=== PATIENT | female | born 1995 | race Two or more races ===

== ENCOUNTER → 2017-04-10 | Outpatient (CLI) | payer MEDICAID | LOC: FIMAGING 07:32 | PROVIDERS: ATTEND Physician Assistant | DX: O36.62X0 Maternal care for excessive fetal growth, second trimester, not applicable or unspecified (principal); O35.8XX0 Maternal care for other (suspected) fetal abnormality and damage, not applicable or unspecified; Z3A.22 22 weeks gestation of pregnancy ==

== ENCOUNTER → 2017-07-04 | Outpatient (CLI) | payer MEDICAID | LOC: FIMAGING 11:06 | PROVIDERS: ATTEND Physician Assistant | DX: O36.63X0 Maternal care for excessive fetal growth, third trimester, not applicable or unspecified (principal); O35.8XX0 Maternal care for other (suspected) fetal abnormality and damage, not applicable or unspecified; Z3A.34 34 weeks gestation of pregnancy ==